=== PATIENT | male | born 1980 | race Caucasian/White ===

== ENCOUNTER 2017-10-22 00:31 | Emergency (ER) | payer OTHER ==
[2017-10-22 01:06] VITALS: O2SAT 98
[2017-10-22] MEDS ORDERED: MORPHINE SULFATE INJ 10 MG/ML VIAL IV ONE ×2 (01:08→02:39)
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
--- NOTE | 2017-10-22 02:19 | CT ---
NONCONTRAST PELVIC CT EXAMINATION. HISTORY: Pain. Left hip dislocation. Fracture? COMPARISONS: Today's radiographs. PROCEDURE: Using helical technique, thin section axial images were performed through pelvis without the administration of intravenous or oral contrast material. FINDINGS: Posterior left hip dislocation with probable indentation of the dislocated anterior femoral head by the posterior acetabulum. No left pubic fractures or left iliac fracture. There is 4.5 mm asymmetric diastases of the left sacroiliac joint without adjacent sacral or iliac fracture. 1.7 cm diastases of the pubic symphysis. The right hip appears normal. Small left pelvic wall hematoma measuring approximately 1.8 cm in greatest thickness. Small amount of free pelvic fluid. The unenhanced urinary bladder is grossly normal. IMPRESSION: 1. Posterior dislocation of the left femoral head probable focal indentation fracture in the anterior left femoral head by the posterior acetabular rim. No left acetabular fracture. No left pubic fracture. 2. 4.5 mm asymmetric diastases of the left sacroiliac joint and 1.7 cm diastases pubic symphysis. 3. Small left pelvic wall hematoma measuring up to 1.8 cm in greatest thickness. Small amount of free pelvic fluid. 4. The fluid-filled distended urinary bladder appears grossly normal on this noncontrast examination. 5. The sacrum and iliac bones appear intact. If clinical concern persists, post intravenous contrast and post oral contrast abdomen and pelvic CT examination should be performed for further evaluation. This exam was performed according to our departmental dose-optimization program, which includes automated exposure control, adjustment of the mA and/or kV according to patient size and/or use of iterative reconstruction technique. Electronically signed by: Andrea Blount MD 10/22/2017 2:18 AM CDT
[2017-10-22 02:47] VITALS: TEMP 98.3
[2017-10-22 03:15] VITALS: BP 170/89
== END 2017-10-22 03:00 | disposition short-term general hospital (02) ==
LOC: ER 00:31
DX: S33.2XXA Dislocation of sacroiliac and sacrococcygeal joint, initial encounter (principal); S73.015A Posterior dislocation of left hip, initial encounter; I10 Essential (primary) hypertension; E03.9 Hypothyroidism, unspecified; W16.42XA Fall into unspecified water causing other injury, initial encounter; Y92.828 Other wilderness area as the place of occurrence of the external cause